=== PATIENT | male | born 1980 | race Caucasian/White ===

== ENCOUNTER 2017-04-05 07:10 | Emergency (ER) | payer SELFPAY ==
[~2017-04-05] VITALS: Ht 182.9 cm; Wt 105.0 kg
[~2017-04-05 07:10] MED LIST: NAPR550 PO; Z.0.NO CURRENT MEDS
[2017-04-05 07:11] VITALS: BP 136/76; PULSE 94; RESP 16; TEMP 97.8; O2SAT 100
[2017-04-05] MEDS ORDERED: ZITHTAB PO (08:37)
[2017-04-05] MEDS ORDERED: VENTAER INH (08:37)
--- NOTE | 2017-04-05 08:37 | PD ---
HPI Chief Complaint: Chest Pain Time Seen by Provider: 08:15 Travel History International Travel<30 days: No Contact w/Intl Traveler<30days: No Traveled to known affect area: No History of Present Illness HPI 36 years old male complains of coughing congestion chest wall pain body ache. Patient states that the symptoms started 4 days ago. Patient states that the cough is intermittent multidrug dry cough with occasional productive cough. Patient complained chest wall pain and body ache. Patient denies earache sore throat. Patient denies any abdominal pain. Patient states that he had 2 episodes of nausea vomiting. Patient denies any dysuria or frequency. Patient has history of asthma. Patient is a smoker. PFSH Past Medical History Asthma: Yes Blood Disorders: No Cancer: No Cardiovascular Problems: No Chemotherapy: No Diminished Hearing: No Endocrine: No Genitourinary: No Immune Disorder: No Musculoskeletal: No Neurologic: No Psychiatric: No Reproductive: No Respiratory: No Immunizations Current: Yes (FLU SHOT-2003) Radiation Therapy: No Past Surgical History Abdominal Surgery: No AICD: No Arteriovenous Shunt: No Cardiac Surgery: No Ear Surgery: No Endocrine Surgery: No Eye Surgery: No Genitourinary Surgery: No Gynecologic Surgery: No Insulin Pump: No Joint Replacement: No Oral Surgery: No Pacemaker: No Thoracic Surgery: No Social History Alcohol Use: Yes Tobacco Use: Yes Substance Use: No Allergies-Medications (Allergen,Severity, Reaction): Coded Allergies: iodine (Unverified Allergy, Severe, RASH, VOMITING, 04/05/17) potassium iodide (Unverified Allergy, Severe, RASH, VOMITING, 04/05/17) povidone-iodine (Unverified Allergy, Severe, RASH, VOMITING, 04/05/17) shellfish derived (Unverified Allergy, Severe, HIVES, VOMITING, 04/05/17) sodium iodide (Unverified Allergy, Severe, RASH, VOMITING, 04/05/17) sodium iodide (Unverified Allergy, Severe, RASH, VOMITING, 04/05/17) Reported Meds & Prescriptions Reported Meds & Active Scripts Active No Active Prescriptions or Reported Medications Review of Systems General / Constitutional: No: Fever Eyes: No: Visual changes HENT: No: Headaches Cardiovascular: No: Chest Pain or Discomfort Respiratory: Positive: Cough, No: Shortness of Breath Gastrointestinal: Positive: Nausea, Vomiting, No: Abdominal Pain Genitourinary: No: Dysuria Musculoskeletal: No: Pain Skin: No Rash Neurologic: No: Weakness Psychiatric: No: Depression Endocrine: No: Polydipsia Hematologic/Lymphatic: No: Easy Bruising Physical Exam Narrative GENERAL: Well-nourished, well-developed patient. SKIN: Focused skin assessment warm/dry. HEAD: Normocephalic. EYES: No scleral icterus. No injection or drainage. NECK: Supple, trachea midline. No JVD or lymphadenopathy. CARDIOVASCULAR: Regular rate and rhythm without murmurs, gallops, or rubs. RESPIRATORY: Breath sounds equal bilaterally. No accessory muscle use. Mild expiratory wheezes bilaterally. GASTROINTESTINAL: Abdomen soft, non-tender, nondistended. MUSCULOSKELETAL: No cyanosis, or edema. BACK: Nontender without obvious deformity. No CVA tenderness. Data Data Last Documented VS Vital Signs Date Time Temp Pulse Resp B/P (MAP) Pulse Ox O2 Delivery O2 Flow Rate FiO2 04/05/17 07:11 97.8 94 16 136/76 (96) 100 Room Air MDM Medical Decision Making Medical Screen Exam Complete: Yes Emergency Medical Condition: Yes Differential Diagnosis Differential diagnosis including viral syndrome, bronchitis, pneumonia, acute exacerbation of asthma. Narrative Course 36 years old male with coughing congestion body ache chest wall pain. History of asthma. Diagnosis Primary Impression: Bronchitis Additional Impression: Viral syndrome Patient Instructions: General Instructions Additional Instructions: Take medications as directed. Use inhaler as directed. Off work today. Medical back to work tomorrow. Tylenol or ibuprofen for aching pain. Follow- up with personal physician. Return if worse. Med/Other Pt SpecificInfo: Prescription(s) given Scripts Azithromycin (Zithromax Z-Scottie) 250 Mg Dspk 250 MG PO DIRECTED for Infection, #1 DSPK 0 Refills 500 MG (2 tabs) day 1, then 1 tab days 2-5. Prov: Blake Shields MD 04/05/17 Albuterol 18 GM Inh (Ventolin Hfa 18 GM Inh) 90 Mcg/Act Aer 2 PUFF INH Q4-6H Y for SHORTNESS OF BREATH, #1 INHALER 0 Refills Prov: Blake Shields MD 04/05/17 Disposition: 01 DISCHARGE HOME Condition: Stable Blake Shields MD Apr 05, 2017 08:37
== END 2017-04-05 08:52 | disposition home or self-care (01) ==
LOC: NEPE 07:10
DX: J40 Bronchitis, not specified as acute or chronic (principal); B34.9 Viral infection, unspecified; Z72.0 Tobacco use
CPT/HCPCS: 99284

== ENCOUNTER 2017-04-07 14:21 | Emergency (ER) | payer SELFPAY ==
[~2017-04-07 14:21] MED LIST changes: -NAPR550 PO; +VENTAER INH; -Z.0.NO CURRENT MEDS; +ZITHTAB PO
[2017-04-07 14:25] VITALS: BP 145/68; PULSE 82; RESP 20; TEMP 98.5; O2SAT 98
--- NOTE | 2017-04-07 15:08 | PD ---
HPI Chief Complaint: Medical Clearance Time Seen by Provider: 14:53 Travel History International Travel<30 days: No Contact w/Intl Traveler<30days: No Traveled to known affect area: No History of Present Illness HPI This is a 36-year-old male who presents to the emergency department with cough that's been going on for 1 week, constant, mild. He says that he coughed up some sputum at work so his job made him come in to get a work note. He says he feels much better after starting antibiotics and albuterol prescribed by Dr. Shields 2 days ago. History Past Medical Histgory Hx Cancer: No Hx Chemotherapy: No Hx Radiation Therapy: No Social History Alcohol Use: Yes Tobacco Use: Yes Allergies-Medications (Allergen,Severity, Reaction): Coded Allergies: iodine (Verified Allergy, Severe, RASH, VOMITING, 04/07/17) potassium iodide (Verified Allergy, Severe, RASH, VOMITING, 04/07/17) povidone-iodine (Verified Allergy, Severe, RASH, VOMITING, 04/07/17) shellfish derived (Verified Allergy, Severe, HIVES, VOMITING, 04/07/17) sodium iodide (Verified Allergy, Severe, RASH, VOMITING, 04/07/17) sodium iodide (Verified Allergy, Severe, RASH, VOMITING, 04/07/17) Reported Meds & Prescriptions Reported Meds & Active Scripts Active Zithromax Z-Scottie (Azithromycin) 250 Mg Dspk 250 Mg PO DIRECTED 500 MG (2 tabs) day 1, then 1 tab days 2-5. Ventolin Hfa 18 GM Inh (Albuterol Sulfate) 90 Mcg/Act Aer 2 Puff INH Q4-6H PRN Review of Systems General / Constitutional: Positive: Chills Respiratory: Positive: Cough Physical Exam Narrative GENERAL: Well-appearing, no acute distress, nontoxic SKIN: Warm and dry. HEAD: Atraumatic. Normocephalic. ENT: No nasal bleeding or discharge. Moist mucous membranes MUSCULOSKELETAL: No obvious deformities. No clubbing. No cyanosis. No edema. NEUROLOGICAL: Awake and alert. No obvious cranial nerve deficits. Motor grossly within normal limits. Normal speech. PSYCHIATRIC: Appropriate mood and affect; insight and judgment normal. Data Data Last Documented VS Vital Signs Date Time Temp Pulse Resp B/P (MAP) Pulse Ox O2 Delivery O2 Flow Rate FiO2 04/07/17 14:25 98.5 82 20 145/68 (93) 98 Room Air MDM Medical Screen Exam Complete: Yes Emergency Medical Condition: No Narrative Course This is a very well-appearing 36-year-old male who presents to the emergency department for a note that he can go back to work following a cold. Pt. is well appearing and has no medical emergency. Primary Impression: Bronchitis Maia Arevalo MD Apr 07, 2017 15:08
== END 2017-04-07 15:24 | disposition left against medical advice (07) ==
LOC: NEPD 14:21
DX: J40 Bronchitis, not specified as acute or chronic (principal); Z72.0 Tobacco use; Z79.51 Long term (current) use of inhaled steroids; Z88.8 Allergy status to other drugs, medicaments and biological substances
CPT/HCPCS: 99281